=== PATIENT | male | born 1985 | race Caucasian/White ===

== ENCOUNTER 2017-01-31 06:42 | Emergency (ER) | payer BC ==
[2017-01-31 07:38] VITALS: TEMP 97.7
[2017-01-31] MEDS ORDERED: Tmp-Smz 800 mg-160 mg DS Tab PO STA (08:05)
--- NOTE | 2017-01-31 08:23 | ED PDOC ---
Arrival/HPI - General Chief Complaint: Upper Extremity Problem/Injury Time Seen by Provider: 01/31/17 07:19 Historian: Patient - History of Present Illness Narrative History of Present Illness (Text): 01/31/17 07:36 A 31 year old male, whose past medical history includes gout, presents to the emergency department complaining of right elbow pain for 2 days. 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 Also, patient reveals a bump in his left elbow that's been there for about a week. No pus drainage or redness. No fever. Patient denies of any other complaints. Symptom Onset: Gradual Symptom Course: Unchanged Past Medical History - Provider Review Nursing Documentation Reviewed: Yes - Infectious Disease Hx of Infectious Diseases: None - Psychiatric Hx Substance Use: No - Anesthesia Hx Anesthesia: No Hx Anesthesia Reactions: No Hx Malignant Hyperthermia: No Family/Social History - Physician Review Nursing Documentation Reviewed: Yes Family/Social History: No Known Family HX Smoking Status: Current Some Days Smoker Hx Alcohol Use: No Hx Substance Use: No Allergies/Home Meds Allergies/Adverse Reactions: Allergies No Known Allergies Allergy (Verified 07/09/15 09:48) Review of Systems - Physician Review All systems were reviewed & negative as marked: Yes - Review of Systems Constitutional: absent: Fevers, Night Sweats Musculoskeletal: Joint Swelling (left elbow abscess, right elbow pain) Neurological: absent: Headache Physical Exam Vital Signs Reviewed: Yes Vital Signs Temp Pulse Resp BP Pulse Ox 01/31/17 09:04 54 L 16 105/63 97 01/31/17 06:43 97.7 F 50 L 18 124/78 98 Temperature: Afebrile Blood Pressure: Normal Pulse: Bradycardic Respiratory Rate: Normal Appearance: Positive for: Well-Appearing Pain Distress: None Mental Status: Positive for: Alert and Oriented X 3 - Systems Exam Head: Present: Atraumatic, Normocephalic Pupils: Present: PERRL Extroacular Muscles: Present: EOMI Conjunctiva: Present: Normal Mouth: Present: Moist Mucous Membranes Neck: Present: Normal Range of Motion Respiratory/Chest: Present: Clear to Auscultation, Good Air Exchange. No: Respiratory Distress, Accessory Muscle Use Cardiovascular: Present: Regular Rate and Rhythm, Normal S1, S2. No: Murmurs Abdomen: Present: Normal Bowel Sounds. No: Tenderness, Distention, Peritoneal Signs Back: Present: Normal Inspection Upper Extremity: Present: Normal ROM (b/l), NORMAL PULSES, Tenderness ( tenderness to the right elbow with flexion), Swelling (1 cm mass nonfluctuant to tip of left elbow), Neurovascularly Intact. No: Erythema, Deformity Lower Extremity: Present: Normal Inspection. No: Edema Neurological: Present: GCS=15, CN II-XII Intact, Speech Normal Skin: Present: Warm, Dry, Normal Color. No: Rashes Psychiatric: Present: Alert, Oriented x 3, Normal Insight, Normal Concentration Medical Decision Making ED Course and Treatment: 01/31/17 07:45 Impression: 31 year old male with right elbow pain and left elbow abscess. Physical exam shows Differential Diagnosis included but are not limited to: Right elbow tendinitis vs. Right Elbow Fracture; Left elbow abscess vs cyst Plan: -- Bactrim -- Right Elbow X-Ray -- Reassess and disposition Prior Visits: Notes and results from previous visits were reviewed. Patient was last seen in the emergency department on 07/09/2015 for left knee swelling. Patient was discharged home. Progress Notes: Right elbow with no fractures. Most likely consistent with strain of elbow tendon/muscle. Patient has full strength and sensation. Advised to take naproxen for pain and antiinflammatory. Left elbow mass appears like a cyst with possible early abscess. There is no fluctuatance. Will treat with abx and have patient follow up in 2-3days. - RAD Interpretation Radiology Orders: 01/31/17 07:39 ELBOW RIGHT 3 VIEWS ROUTINE [RAD] Stat - Medication Orders Current Medication Orders: Discontinued Medications Trimethoprim/Sulfamethoxazole (Bactrim Ds Tab) 1 tab PO STAT STA PRN Reason: Protocol Stop: 01/31/17 08:06 Last Admin: 01/31/17 08:37 Dose: 1 tab - Scribe Statement The provider has reviewed the documentation as recorded by the Wilfred Watson Provider Scribe Attestation: All medical record entries made by the Scribe were at my direction and personally dictated by me. I have reviewed the chart and agree that the record accurately reflects my personal performance of the history, physical exam, medical decision making, and the department course for this patient. I have also personally directed, reviewed, and agree with the discharge instructions and disposition. Disposition/Present on Arrival - Present on Arrival Any Indicators Present on Arrival: No History of DVT/PE: No History of Uncontrolled Diabetes: No Urinary Catheter: No History of Decub. Ulcer: No History Surgical Site Infection Following: None - Disposition Have Diagnosis and Disposition been Completed?: Yes Diagnosis: Elbow strain Disposition: HOME/ ROUTINE Disposition Time: 08:45 Patient Plan: Discharge Condition: IMPROVED Discharge Instructions (ExitCare): Elbow Sprain (ED), Abscess (ED) Additional Instructions: Mr Novak, thank you for letting us take care of you today. Your provider was Dr. Mueller. You were treated for Left Elbow cyst, Right Elbow Strain. The emergency medical care you received today was directed at your acute symptoms. If you were prescribed any medication, please fill it and take as directed. It may take several days for your symptoms to resolve. Return to the Emergency Department if your symptoms worsen, do not improve, or if you have any other problems. Return to the ED in 3 days for a wound check. Please contact your doctor or call one of the physicians/clinics you have been referred to that are listed on the Patient Visit Information form that is included in your discharge packet. Bring any paperwork you were given at discharge with you along with any medications you are taking to your follow up visit. Our treatment cannot replace ongoing medical care by a primary care provider (PCP) outside of the emergency department. Thank you for allowing the [facility] team to be part of your care today. If you had an X-Ray or CT scan: A Radiologist will review the ED reading if any change in treatment is needed we will contact you. If you had a blood, urine, or wound culture: It will take several days for the results, if any change in treatment is needed we will contact you. If you had an STI test: It will take 48 hours for the results. Please call after 1 week if you have not heard back. Prescriptions: Naproxen 500 mg PO BID PRN #30 tab PRN Reason: Pain, Moderate (4-7) Sulfamethoxazole/Trimethoprim [Bactrim DS 800 mg-160 mg] 1 tab PO Q12 #14 tab Referrals: [facility] at [facility] [place] [Outside] - Follow up with primary Forms: [employer] (Divehi), WORK NOTE
--- NOTE | 2017-01-31 08:37 | RAD ---
PROCEDURE: Radiographs of the right elbow. HISTORY: pain r/o fx COMPARISON: No prior. FINDINGS: BONES: Normal. No fracture. JOINTS: Normal. No osteoarthritis. SOFT TISSUES: Normal. JOINT EFFUSION: None. OTHER FINDINGS: None. IMPRESSION: Unremarkable radiographs of the right elbow.
[2017-01-31 09:05] VITALS: BP 105/63; PULSE 54; RESP 16; O2SAT 97
== END 2017-01-31 09:05 | disposition home or self-care (01) ==
LOC: ED 06:42
DX: S46.811A Strain of other muscles, fascia and tendons at shoulder and upper arm level, right arm, initial encounter (principal); X50.0XXA Overexertion from strenuous movement or load, initial encounter; Y93.89 Activity, other specified; Y92.89 Other specified places as the place of occurrence of the external cause

== ENCOUNTER 2017-02-26 06:11 | Emergency (ER) | payer BC ==
[2017-02-26 06:36] VITALS: O2SAT 99
--- NOTE | 2017-02-26 07:48 | ED PDOC ---
Arrival/HPI - General Chief Complaint: Abnormal Skin Integrity Time Seen by Provider: 02/26/17 07:44 - History of Present Illness Narrative History of Present Illness (Text): 02/26/17 07:46 31yo male with L. elbow mass/swelling for the past few weeks. Pt states it is not painful and he cannot recall any trauma or injury. States he took abx with no mass resolution. Denies f/c or restriction of ROM. No other complaints. Past Medical History - Provider Review Nursing Documentation Reviewed: Yes - Infectious Disease Hx of Infectious Diseases: None - Psychiatric Hx Substance Use: No - Anesthesia Hx Anesthesia: No Hx Anesthesia Reactions: No Hx Malignant Hyperthermia: No Family/Social History Family/Social History: Unknown Family HX Smoking Status: Current Some Days Smoker Hx Alcohol Use: No Hx Substance Use: No Allergies/Home Meds Allergies/Adverse Reactions: Allergies No Known Allergies Allergy (Verified 07/09/15 09:48) Home Medications: Home Meds Medication Instructions Recorded Confirmed No Known Home Med 02/26/17 02/26/17 Review of Systems - Physician Review All systems were reviewed & negative as marked: Yes - Review of Systems Skin: absent: Laceration Physical Exam Vital Signs Reviewed: Yes Vital Signs Temp Pulse Resp BP Pulse Ox 02/26/17 06:34 97.9 F 56 L 18 126/74 99 Temperature: Afebrile Blood Pressure: Normal Pulse: Bradycardic Respiratory Rate: Normal Appearance: Positive for: Well-Appearing Pain Distress: None Mental Status: Positive for: Alert and Oriented X 3 - Systems Exam Upper Extremity: Present: Other (L. elbow with a mobile non-fluctuant circular mass ~2cm in circ. Non-tender. Not warm and non-erythematous. Elbow with full active and passive ROM. No pain with joint mobility. ) Neurological: Present: Motor Func Grossly Intact, Other (no focal neurological deficitis) Medical Decision Making ED Course and Treatment: 02/26/17 07:51 based on hx and physical, more consistent with lipoma, and not infectious etiology pt instructed to f/u with a surgical garment assembler outpatient for further treatment options Pt states he understands to return to the ER right away for new or worsening symptoms or for inability to f/u with PMD or specialist as instructed. Patient states that he fully agrees with and understands discharge instructions. States that he agrees with the plan and disposition. Verbalized and repeated discharge instructions and plan. I have given the patient opportunity to ask any additional questions. Disposition/Present on Arrival - Present on Arrival Any Indicators Present on Arrival: No History of DVT/PE: No History of Uncontrolled Diabetes: No Urinary Catheter: No History of Decub. Ulcer: No History Surgical Site Infection Following: None - Disposition Have Diagnosis and Disposition been Completed?: Yes Diagnosis: Elbow mass Disposition: HOME/ ROUTINE Disposition Time: 07:44 Patient Plan: Discharge Condition: GOOD Discharge Instructions (ExitCare): Lipoma (ED) Additional Instructions: PLEASE RETURN TO THE EMERGENCY DEPARTMENT FOR NEW OR WORSENING SYMPTOMS. RETURN RIGHT AWAY IF YOU CANNOT FOLLOW UP WITH YOUR PRIMARY CARE DOCTOR, CLINIC, OR SPECIALIST IN 1-2 DAYS. Referrals: Shree Resendez MD [Staff Provider] - Follow up with primary
[2017-02-26 07:57] VITALS: BP 125/67; PULSE 60; RESP 16; TEMP 98
== END 2017-02-26 07:59 | disposition home or self-care (01) ==
LOC: ED 06:11
DX: R22.32 Localized swelling, mass and lump, left upper limb (principal)

== ENCOUNTER 2017-02-27 18:50 | Emergency (ER) | payer BC ==
[2017-02-27 18:54] VITALS: BMI 27.4
[2017-02-27 18:58] VITALS: RESP 18; TEMP 98.2
--- NOTE | 2017-02-27 20:12 | ED PDOC ---
Arrival/HPI - General Chief Complaint: Medical Clearance Time Seen by Provider: 02/27/17 19:24 Historian: Patient - History of Present Illness Narrative History of Present Illness (Text): 02/27/17 20:43 A 31 year old male presents to the emergency department complaining of left sided facial pain, left bottom 3rd molar. Patient reports taking Tylenol with no relief. Patient denies any headache, swelling, URI, sore throat or any other complaints at this time. Symptom Onset: Sudden Symptom Course: Unchanged Activities at Onset: Rest Context: Home Past Medical History - Provider Review Nursing Documentation Reviewed: Yes - Infectious Disease Hx of Infectious Diseases: None - Psychiatric Hx Substance Use: No - Surgical History Other/Comment: R ear surgery - Anesthesia Hx Anesthesia: Yes Hx Anesthesia Reactions: No Hx Malignant Hyperthermia: No Family/Social History - Physician Review Nursing Documentation Reviewed: Yes Family/Social History: No Known Family HX Smoking Status: Current Some Days Smoker Hx Alcohol Use: No Hx Substance Use: No Allergies/Home Meds Allergies/Adverse Reactions: Allergies No Known Allergies Allergy (Verified 07/09/15 09:48) Review of Systems - Physician Review All systems were reviewed & negative as marked: Yes - Review of Systems ENT: Other (left sided facial pain, left bottom 3rd molar, no swelling). absent : Sore Throat Neurological: absent: Headache Physical Exam Vital Signs Reviewed: Yes Vital Signs Temp Pulse Resp BP Pulse Ox 02/27/17 20:18 67 18 149/71 100 02/27/17 18:57 98.2 F 59 L 18 152/90 H 99 Temperature: Afebrile Blood Pressure: Hypertensive Pulse: Bradycardic Respiratory Rate: Normal Appearance: Positive for: Well-Appearing, Non-Toxic, Comfortable Pain Distress: Mild Mental Status: Positive for: Alert and Oriented X 3 - Systems Exam Head: Present: Atraumatic, Normocephalic Pupils: Present: PERRL Extroacular Muscles: Present: EOMI Conjunctiva: Present: Normal Mouth: Present: Other (left bottom 3rd molar decaying; no surrounding erythema, no edema) Pharnyx: Present: Normal. No: ERYTHEMA, EXUDATE Neck: Present: Normal Range of Motion Respiratory/Chest: Present: Clear to Auscultation, Good Air Exchange. No: Respiratory Distress, Accessory Muscle Use Cardiovascular: Present: Regular Rate and Rhythm, Normal S1, S2. No: Murmurs Abdomen: Present: Normal Bowel Sounds. No: Tenderness, Distention, Peritoneal Signs Back: Present: Normal Inspection Upper Extremity: Present: Normal Inspection. No: Cyanosis, Edema Lower Extremity: Present: Normal Inspection. No: Edema Neurological: Present: GCS=15, CN II-XII Intact, Speech Normal Skin: Present: Warm, Dry, Normal Color. No: Rashes Psychiatric: Present: Alert, Oriented x 3, Normal Insight, Normal Concentration Medical Decision Making ED Course and Treatment: 02/27/17 20:36 Impression: A 31 year old male with left sided facial pain, left bottom 3rd molar. Plan: -- Ultram -- Reassess and disposition Prior Visits: Notes and results from previous visits were reviewed. Patient was last seen in the emergency department on 02/26/17 for evaluation of left elbow mass/swelling. Progress Notes: On re-evaluation, patient feels better and is in no acute distress. I have discussed the results and plan with the patient, who expresses understanding. Patient in agreement with plan to be discharged home. Patient is stable for discharge. Patient was instructed to follow up with a dentist in 2 days without fail or return if symptoms worsen or new concerning symptoms arise. - Medication Orders Current Medication Orders: Discontinued Medications Tramadol HCl (Ultram) 50 mg PO STAT STA Stop: 02/27/17 20:09 Last Admin: 02/27/17 20:15 Dose: 50 mg PRAFUL Pain Assessment Document 02/27/17 20:15 SF (Rec: 02/27/17 20:15 SF [id number]) Pain Reassessment Is this a pain reassessment? Yes Sleep Is patient sleeping during reassessment? No Presence of Pain Presence of Pain Yes - PA / HEAT TREAT SUPERVISOR / Resident Statement MD/DO has reviewed & agrees with the documentation as recorded. - Scribe Statement The provider has reviewed the documentation as recorded by the Wilfred Hernandez Provider Scribe Attestation: All medical record entries made by the Wilfred were at my direction and personally dictated by me. I have reviewed the chart and agree that the record accurately reflects my personal performance of the history, physical exam, medical decision making, and the department course for this patient. I have also personally directed, reviewed, and agree with the discharge instructions and disposition. Disposition/Present on Arrival - Present on Arrival Any Indicators Present on Arrival: No History of DVT/PE: No History of Uncontrolled Diabetes: No Urinary Catheter: No History of Decub. Ulcer: No History Surgical Site Infection Following: None - Disposition Have Diagnosis and Disposition been Completed?: Yes Diagnosis: Toothache Disposition: HOME/ ROUTINE Disposition Time: 20:00 Patient Plan: Discharge Condition: STABLE Discharge Instructions (ExitCare): Toothache (ED) Print Language: AMHARIC Additional Instructions: Thank you for letting us take care of you today. You were treated for toothache. The emergency medical care you received today was directed at your acute symptoms. If you were prescribed any medication, please fill it and take as directed. It may take several days for your symptoms to resolve. Return to the Emergency Department if your symptoms worsen, do not improve, or if you have any other problems. Please contact your doctor in 2 days for re-evaluation and follow up. Bring any paperwork you were given at discharge with you along with any medications you are taking to your follow up visit. Our treatment cannot replace ongoing medical care by a primary care provider (PCP) outside of the emergency department. Thank you for allowing the [facility] team to be part of your care today. Prescriptions: traMADol [Ultram] 50 mg PO TID PRN #12 tab PRN Reason: Pain, Moderate (4-7) Referrals: PCP,NO [Primary Care Provider] - Follow up with primary Forms: [employer] (Samoan)
[2017-02-27 20:20] VITALS: BP 149/71; PULSE 67; O2SAT 100
== END 2017-02-27 20:20 | disposition home or self-care (01) ==
LOC: ED 18:50
DX: K08.89 Other specified disorders of teeth and supporting structures (principal); F17.210 Nicotine dependence, cigarettes, uncomplicated

== ENCOUNTER 2017-06-30 03:07 | Emergency (ER) | payer BC ==
[2017-06-30 03:07] VITALS: BMI 27.4
[2017-06-30 03:17] VITALS: RESP 18; TEMP 97.8; O2SAT 97
[2017-06-30] MEDS ORDERED: Vancomycin 1gm in NS 250ml 1 GM/250 ML BAG IVPB STA (03:32)
--- NOTE | 2017-06-30 03:32 | ED PDOC ---
Arrival/HPI - General Historian: Patient - History of Present Illness Time/Duration: 24 hours, < week Symptom Course: Worsening <Shira Salazar - Last Filed: 06/30/17 03:58> <Masoud Pastor DO - Last Filed: 06/30/17 06:08> - General Chief Complaint: Allergic Reaction Time Seen by Provider: 06/30/17 03:22 - History of Present Illness Narrative History of Present Illness (Text): CC: skin lesions on scalp and face 31M presents with skin lesions on scalp, forehead, and left eyelid. Patient states he had lesions on his head after his brother cut his hair with "dirty clippers" and it went away. Patient's brother cut his hair on 06/27/17 and patient had skin lesions return. Patient scratched the skin lesions and the skin lesions burst leaving scar. Patient states he does not feel pruritis, pain , discomfort except for discomfort on his eyelid. Patient denies fever, chills, changes in vision, shortness of breath, fatigue (Shira Salazar) Past Medical History - Provider Review Nursing Documentation Reviewed: Yes - Travel History Have you recently traveled outside [place] w/in the past 3 mons?: No - Past History Past History: Non-Contributing - Infectious Disease Hx of Infectious Diseases: None - Psychiatric Hx Substance Use: No - Surgical History Other/Comment: R ear surgery - Anesthesia Hx Anesthesia: Yes Hx Anesthesia Reactions: No Hx Malignant Hyperthermia: No <Shira Salazar - Last Filed: 06/30/17 03:58> Family/Social History - Physician Review Nursing Documentation Reviewed: Yes Family/Social History: No Known Family HX Smoking Status: Current Some Days Smoker Hx Alcohol Use: No Hx Substance Use: No <Shira Salazar - Last Filed: 06/30/17 03:58> Allergies/Home Meds <Shira Salazar - Last Filed: 06/30/17 03:58> <Masoud Pastor DO - Last Filed: 06/30/17 06:08> Allergies/Adverse Reactions: Allergies No Known Allergies Allergy (Verified 07/09/15 09:48) Review of Systems - Physician Review All systems were reviewed & negative as marked: Yes - Review of Systems Constitutional: Normal Eyes: Normal, Other (pain around eyelid). absent: Vision Changes, Photophobia, Eye Pain ENT: Normal Respiratory: Normal Cardiovascular: Normal Gastrointestinal: Normal Genitourinary Male: Normal Musculoskeletal: Normal. absent: Arthralgias, Back Pain Skin: Skin Lesions Neurological: Normal. absent: Focal Weakness, Speech Changes, Facial Droop, Disequilibrium, Seizure Endocrine: Normal Hemo/Lymphatic: Normal Psychiatric: Normal <Shira Salazar - Last Filed: 06/30/17 03:58> Physical Exam Vital Signs Reviewed: Yes Temperature: Afebrile Blood Pressure: Hypotensive Pulse: Bradycardic Appearance: Positive for: Comfortable - Systems Exam Head: Present: Normocephalic, Other (skin lesions on scalp and left forehead) Pupils: Present: PERRL Extroacular Muscles: Present: EOMI Conjunctiva: Present: Normal. No: Injected, Icteric Mouth: Present: Moist Mucous Membranes, Normal Lips. No: Dry, Drooling, Trismus Pharnyx: Present: Normal. No: ERYTHEMA, EXUDATE Nose (External): Present: Atraumatic, Lesions Neck: Present: Normal Range of Motion, Trachea Midline. No: MIDLINE TENDERNESS , JVD, Lymphadenopathy Respiratory/Chest: Present: Clear to Auscultation, Good Air Exchange. No: Respiratory Distress, Accessory Muscle Use, Wheezes Cardiovascular: Present: Regular Rate and Rhythm, Normal S1, S2 Abdomen: Present: Normal Bowel Sounds. No: Tenderness, Distention Upper Extremity: Present: Normal Inspection, Normal ROM, NORMAL PULSES, Capillary Refill < 2s. No: Edema Lower Extremity: Present: Normal Inspection, NORMAL PULSES, Normal ROM, Capillary Refill < 2 s. No: Edema Neurological: Present: GCS=15, CN II-XII Intact Skin: Present: Warm, Dry, Rashes, Normal Color Lymphatic: No: Cervical Adenopathy, Axillary Adenopathy, Inguinal Adenopathy Psychiatric: Present: Alert, Oriented x 3, Normal Insight, Normal Concentration <MarieShira - Last Filed: 06/30/17 03:58> Vital Signs Temp Pulse Resp BP Pulse Ox 06/30/17 05:07 65 18 120/64 97 06/30/17 03:16 97.8 F 56 L 18 120/57 L 97 Medical Decision Making Reassessment Condition: Re-examined, Unchanged <Shira Salazar - Last Filed: 06/30/17 03:58> <Masoud Pastor DO - Last Filed: 06/30/17 06:08> ED Course and Treatment: 06/30/17 04:04 1gm vancomycin toradol ivp (Shira Salazar) - Medication Orders Current Medication Orders: Discontinued Medications Vancomycin HCl (Vancomycin 1gm) 1 gm in 250 mls @ 167 mls/hr IVPB STAT STA PRN Reason: Protocol Stop: 06/30/17 05:01 Last Admin: 06/30/17 03:48 Dose: 167 mls/hr eMAR Start Stop Document 06/30/17 03:48 JOL (Rec: 06/30/17 03:49 JOL [id number]) Intravenous Solution Start Date 06/30/17 Start Time 03:48 End Date 06/30/17 End time 05:18 Total Infusion Time 90 Ketorolac Tromethamine (Toradol) 30 mg IVP STAT STA Stop: 06/30/17 03:49 Last Admin: 06/30/17 03:59 Dose: 30 mg MAR Pain Assessment Document 06/30/17 03:59 JOL (Rec: 06/30/17 03:59 JOL [id number]) Pain Reassessment Is this a pain reassessment? No Sleep Is patient sleeping during reassessment? No Presence of Pain Presence of Pain Yes Pain Scale Used Pain Scale Used Numeric Location Left, Right or Bilateral Right Pain Location Body Site Eye Description Intensity of Pain at present 5 Acceptable Level of Pain 1 IVP Administration Document 06/30/17 03:59 JOL (Rec: 06/30/17 03:59 JOL [id number]) Charges for Administration # of IVP Administrations 1 Disposition/Present on Arrival - Present on Arrival Any Indicators Present on Arrival: No History of DVT/PE: No History of Uncontrolled Diabetes: No Urinary Catheter: No History of Decub. Ulcer: No History Surgical Site Infection Following: None - Disposition Have Diagnosis and Disposition been Completed?: Yes Disposition Time: 04:20 Patient Plan: Discharge <Shira Salazar - Last Filed: 06/30/17 03:58> - Disposition Disposition Time: 04:00 <Masoud Pastor DO - Last Filed: 06/30/17 06:08> - Disposition Diagnosis: Skin infection Disposition: HOME/ ROUTINE Condition: GOOD Print Language: MALAYSIAN Additional Instructions: take antibiotics as described. exercise proper hygiene/sterilizing techniques for hair cutting instruments return to ED if it worsens follow up with primary care doctor for referral to infectious disease, dermatology if skin lesions do not heal Prescriptions: Amoxicillin/Potassium Clav [Augmentin 500-125 Tablet] 1 each PO BID #14 tablet Cephalexin [Keflex] 500 mg PO BID #14 capsule Forms: [employer] (American), WORK NOTE
[2017-06-30 05:41] VITALS: BP 120/64; PULSE 65
== END 2017-06-30 05:42 | disposition home or self-care (01) ==
LOC: ED 03:07
DX: L08.9 Local infection of the skin and subcutaneous tissue, unspecified (principal)
CPT/HCPCS: 96365; 96375; 99284; J1885

== ENCOUNTER 2017-10-30 10:40 | Emergency (ER) | payer BC, MEDICAID ==
[2017-10-30 10:41] VITALS: BMI 27.4
[2017-10-30 10:52] VITALS: TEMP 97.8
--- NOTE | 2017-10-30 11:17 | ED PDOC ---
Arrival/HPI - General Chief Complaint: Lower Extremity Problem/Injury Time Seen by Provider: 10/30/17 11:06 Historian: Patient - History of Present Illness Narrative History of Present Illness (Text): 10/30/17 11:17 This 32 yo male who has a pmh Gout, presents to this ED c/o right foot, and right knee pain and swelling x 3-4 days. Patient denies trauma, fever, or skin rash. Time/Duration: Other (see hpi) Context: Home Past Medical History - Provider Review Nursing Documentation Reviewed: Yes - Past History Past History: Non-Contributing - Infectious Disease Hx of Infectious Diseases: None - Cardiac Hx Cardiac Disorders: No - Pulmonary Hx Respiratory Disorders: No - Neurological Hx Neurological Disorder: No - HEENT Hx HEENT Disorder: No - Renal Hx Renal Disorder: No - Endocrine/Metabolic Hx Endocrine Disorders: No - Hematological/Oncological Hx Blood Disorders: No - Integumentary Hx Dermatological Disorder: No - Musculoskeletal/Rheumatological Hx Musculoskeletal Disorders: Yes Other/Comment: R KNEE PAIN - Gastrointestinal Hx Gastrointestinal Disorders: No - Genitourinary/Gynecological Hx Genitourinary Disorders: No - Psychiatric Hx Psychophysiologic Disorder: No Hx Substance Use: No - Surgical History Other/Comment: R ear surgery - Anesthesia Hx Anesthesia: Yes Hx Anesthesia Reactions: No Hx Malignant Hyperthermia: No Family/Social History - Physician Review Nursing Documentation Reviewed: Yes Family/Social History: Other (noncontributory) Smoking Status: Current Some Days Smoker Hx Alcohol Use: No Hx Substance Use: No Allergies/Home Meds Allergies/Adverse Reactions: Allergies No Known Allergies Allergy (Verified 10/30/17 10:48) Review of Systems - Review of Systems Constitutional: Normal. absent: Fatigue, Weight Change, Fevers Eyes: Normal ENT: Normal Respiratory: Normal Cardiovascular: Normal Gastrointestinal: Normal Genitourinary Male: Normal Musculoskeletal: Arthralgias, Other (right foot/knee pain, and swelling) Skin: Normal. absent: Rash Neurological: Normal. absent: Headache, Dizziness, Focal Weakness, Gait Changes , Speech Changes, Facial Droop, Disequilibrium Endocrine: Normal Hemo/Lymphatic: Normal Psychiatric: Normal Physical Exam Vital Signs Temp Pulse Resp BP Pulse Ox 10/30/17 13:11 70 18 133/80 96 10/30/17 10:48 97.8 F 89 16 138/83 98 Temperature: Afebrile Blood Pressure: Normal Pulse: Regular Respiratory Rate: Normal Appearance: Positive for: Well-Appearing, Non-Toxic, Comfortable Pain Distress: None Mental Status: Positive for: Alert and Oriented X 3 - Systems Exam Head: Present: Atraumatic, Normocephalic Pupils: Present: PERRL Extroacular Muscles: Present: EOMI Conjunctiva: Present: Normal Mouth: Present: Moist Mucous Membranes Neck: Present: Normal Range of Motion Respiratory/Chest: Present: Clear to Auscultation, Good Air Exchange. No: Respiratory Distress, Accessory Muscle Use Cardiovascular: Present: Regular Rate and Rhythm, Normal S1, S2. No: Murmurs Abdomen: No: Tenderness, Distention, Peritoneal Signs Back: Present: Normal Inspection Upper Extremity: Present: Normal Inspection. No: Cyanosis, Edema Lower Extremity: Present: NORMAL PULSES, Neurovascularly Intact, Capillary Refill < 2 s. No: Edema, CALF TENDERNESS, Normal ROM (Decreased ROM due to pain. Right knee patient is able to bend 90 degrees, and fully extend) Neurological: Present: GCS=15, CN II-XII Intact, Speech Normal, Motor Func Grossly Intact, Normal Sensory Function, Normal Cerebellar Funct Skin: Present: Warm, Dry, Normal Color. No: Rashes Psychiatric: Present: Alert, Oriented x 3, Normal Insight, Normal Concentration Medical Decision Making ED Course and Treatment: 10/30/17 14:14 Re-evaluation. Patient feels better. Discussed results and plan with patient who expresses understanding. All questions answered and there is agreement with the plan to discharge home with instructions. Patient stable for discharge. Return if symptoms persist or worsen Re-evaluation Time: 14:13 Reassessment Condition: Re-examined, Improved - RAD Interpretation Narrative RAD Interpretations (Text): 10/30/17 14:13 PROCEDURE: Right lower extremity venous US HISTORY: Leg pain and swelling. Evaluate for DVT. PHYSICIAN(S): Josse Banks M.D. TECHNIQUE: Duplex sonography and color-flow Doppler with graded compression were used to evaluate the deep venous system of the right lower extremity. FINDINGS: The visualized deep venous system of the right lower extremity is sonographically normal and compressible. Normal waveforms and augmentation are seen. There is no sonographic evidence for deep venous thrombosis in the visualized segments of the right lower extremity. IMPRESSION: 1. No sonographic evidence for deep venous thrombosis in the visualized segments of the right lower extremity. Radiology Orders: 05/28/18 11:17 DUPLEX LOWER EXTRM VEIN RIGHT [US] Stat 10/30/17 11:18 FOOT RIGHT 3 VIEWS ROUTINE [RAD] Stat KNEE W PATELLA RIGHT 3 VIEW [RAD] Stat - Medication Orders Current Medication Orders: Discontinued Medications Colchicine (Colocrys) 1.2 mg PO STAT STA Stop: 10/30/17 11:20 Last Admin: 10/30/17 11:59 Dose: 1.2 mg Colchicine (Colocrys) 0.6 mg PO STAT STA Stop: 10/30/17 12:55 Last Admin: 10/30/17 13:12 Dose: 0.6 mg Ketorolac Tromethamine (Toradol) 30 mg IM STAT STA Stop: 10/30/17 11:20 Last Admin: 10/30/17 12:00 Dose: 30 mg MAR Pain Assessment Document 10/30/17 12:00 [email or web address] (Rec: 10/30/17 12:00 CAST [id number]) Pain Reassessment Is this a pain reassessment? No Sleep Is patient sleeping during reassessment? No Presence of Pain Presence of Pain Yes Pain Scale Used Pain Scale Used Numeric Location Left, Right or Bilateral Right Pain Location Body Site Hand Knee Description Description Constant Intensity of Pain at present 5 Pain Behavior Facial Grimacing Aggravating Factors Changing Position Alleviating Factors/Management Medication Techniques Alleviating Factors Medication IM Administration Charges Document 10/30/17 12:00 [email or web address] (Rec: 10/30/17 12:00 [email or web address] [id number]) Injection Site MAR Injection Site Right Deltoid Charges for Administration # of IM Administrations 1 Disposition/Present on Arrival - Present on Arrival Any Indicators Present on Arrival: No History of DVT/PE: No History of Uncontrolled Diabetes: No Urinary Catheter: No History of Decub. Ulcer: No History Surgical Site Infection Following: None - Disposition Have Diagnosis and Disposition been Completed?: Yes Diagnosis: Gout attack Disposition: HOME/ ROUTINE Disposition Time: 14:15 Patient Plan: Discharge Patient Problems: Current Active Problems Problem Status Onset Gout attack Acute Condition: GOOD Discharge Instructions (ExitCare): Lifestyle Changes to Manage Gout, Gout (DC) , Gout Additional Instructions: Call private doctor for follow up visit in 1-2 days. Take medication as instructed. return to emergency if symptoms worsen. Use crutches till pain improves. Avoid gonzalez, alcohol, sea food, fish, or meat. Return to emergency if pain worsen. Prescriptions: Famotidine [Pepcid] 40 mg PO DAILY #10 tablet Indomethacin [Indocin] 50 mg PO TID PRN #30 cap PRN Reason: Pain, Severe (8-10) Referrals: [facility] [Outside] - Follow up with primary [facility] [Outside] - Follow up with primary Forms: [facility] (Slovak), WORK NOTE
--- NOTE | 2017-10-30 12:57 | US ---
PROCEDURE: Right lower extremity venous US HISTORY: Leg pain and swelling. Evaluate for DVT. PHYSICIAN(S): Josse Banks M.D. TECHNIQUE: Duplex sonography and color-flow Doppler with graded compression were used to evaluate the deep venous system of the right lower extremity. FINDINGS: The visualized deep venous system of the right lower extremity is sonographically normal and compressible. Normal waveforms and augmentation are seen. There is no sonographic evidence for deep venous thrombosis in the visualized segments of the right lower extremity. IMPRESSION: 1. No sonographic evidence for deep venous thrombosis in the visualized segments of the right lower extremity.
--- NOTE | 2017-10-30 12:58 | RAD ---
PROCEDURE: Right Knee Radiographs. HISTORY: Nontraumatic pain. COMPARISON: None. FINDINGS: BONES: No evidence of acute displaced fracture nor dislocation. JOINTS: Mild tricompartmental degenerative osteoarthritis. JOINT EFFUSION: Small to medium size suprapatellar joint effusion. OTHER FINDINGS: None. IMPRESSION: No evidence of acute displaced fracture nor dislocation. Mild tricompartmental degenerative osteoarthritis. Small to medium size suprapatellar joint effusion. .
--- NOTE | 2017-10-30 12:59 | RAD ---
PROCEDURE: Right Foot Radiographs. HISTORY: pain COMPARISON: None. FINDINGS: BONES: Normal. No fracture. JOINTS: Joint spaces relatively preserved. SOFT TISSUES: There appears to be mild diffuse soft tissue swelling most pronounced dorsally at the level of the mid to distal metatarsal region. OTHER FINDINGS: None. IMPRESSION: No evidence of acute displaced fracture nor dislocation. There appears to be mild soft tissue swelling as above.
[2017-10-30 13:12] VITALS: BP 133/80; RESP 18
[2017-10-30 14:23] VITALS: PULSE 75; O2SAT 98
== END 2017-10-30 14:23 | disposition home or self-care (01) ==
LOC: ED 10:40
DX: M10.9 Gout, unspecified (principal)
CPT/HCPCS: 73562; 73630; 93971; 96372; 99282; J1885